=== PATIENT | female | born 2000 | race Caucasian/White ===

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

== ENCOUNTER 2022-05-11 14:00 | Outpatient (REF) | payer OTHER, SELFPAY ==
[2022-05-13 11:16] LABS: COVID-19 RT-PCR UVMMC Result Negative (Negative)
== END 2022-05-11 14:01 | disposition home or self-care (01) ==
LOC: LBN 14:00
PROVIDERS: PCP Family Medicine; Visit Provider Physician Assistant Medical
DX: Z20.822 Contact with and (suspected) exposure to COVID-19 (principal); J34.89 Other specified disorders of nose and nasal sinuses
CPT/HCPCS: U0003

== ENCOUNTER 2022-05-31 04:01 | Outpatient (CLI) | payer BC, SELFPAY ==
[2022-05-31 15:55] LABS: Panorama Kit Sent via Fed Ex
[2022-05-31 16:01] LABS: Abs Immature Grans 0.02 10^3/uL (0.0-0.06); Absolute Basophil Count 0.01 10^3/uL (0.0-0.2); Absolute Eosinophil Count 0.04 10^3/uL (0.0-0.7); Absolute Lymphocyte Count 2.22 10^3/uL (1.2-3.4); Absolute Monocyte Count 0.38 10^3/uL (0.1-0.8); Absolute Neutrophil Count 3.87 10^3/uL (1.2-6.7); Basophils % 0.2; Eosinophils % 0.6; HCT 39.1 % (36.0-46.0); HGB 13.6 g/dL (11.2-15.7); Immature Grans % 0.3; Lymphocytes % 33.9; MCH 28.8 pg (27.0-33.0); MCHC 34.8 % (32.0-36.0); MCV 83 fL (80-95); MPV 8.6 fL (8.0-11.0); Monocytes % 5.8; Neutrophils % 59.2; Platelet Count 254 10^3/uL (130-400); RBC 4.73 10^6/uL (3.93-5.22); RDW 12.7 % (11.7-14.6); RDW-SD 38.5 fL; WBC 6.54 10^3/uL (4.4-10.8)
[2022-05-31 16:37] LABS: Glucose,1 Hr (Glucola) 121 mg/dL (80-140)
[2022-05-31 18:25] LABS: ALT 20 U/L (14-59); AST 19 U/L (15-37); Albumin 3.1 g/dL (3.4-5.0); Alkaline Phosphatase 83 U/L (46-116); Anion Gap 9.6 mmol/L (3-11); BUN 10 mg/dL (7-18); Bilirubin, Total 0.3 mg/dL (0.2-1.0); CO2 25.4 mmol/L (21.0-32.0); CREATININE 0.6 mg/dL (0.55-1.02); Calcium 8.7 mg/dL (8.5-10.1); Chloride 102 mmol/L (98-107); Estimated GFR 130.07 (mL/min/1.73m2); Glucose 115 mg/dL (74-106); Potassium 3.3 mmol/L (3.5-5.1); Sodium 137 mmol/L (136-145); TSH (W/Ref FT4) 1.37 uIU/mL (0.36-3.74); Total Protein 7.3 g/dL (6.4-8.2)
[2022-06-02 09:41] LABS: HIV-1/2 Ag & Ab Screen Negative (Negative)
[2022-06-04 09:51] LABS: Hepatitis C Ab w Rflx HCV PCR Negative (Negative)
[2022-06-04 09:57] LABS: Hepatitis B Surface Ag Negative (Negative)
[2022-06-04 10:36] LABS: Rubella IgG Ab (UVM) Positive (See Note); Varicella IgG Antibody Positive (See Note)
[2022-06-04 23:52] LABS: Syphilis IgG w/Reflex Nonreactive (Nonreactive)
[2022-06-08 14:03] LABS: Specimen WB Whole Blood
[2022-06-25 15:34] LABS: Result Summary NEGATIVE; Specimen WB Whole Blood
== END 2022-05-31 04:02 | disposition home or self-care (01) ==
LOC: LBO 04:02
PROVIDERS: PCP Family Medicine; Visit Provider Advanced Practice Midwife
DX: Z34.91 Encounter for supervision of normal pregnancy, unspecified, first trimester (principal); Z3A.13 13 weeks gestation of pregnancy; Z36.89 Encounter for other specified antenatal screening
CPT/HCPCS: 36415; 80053; 81220; 81222; 81329; 82950; 86787; 86803; 86850; 86900; 86901; 87340; 87389; 84443; 85025; 86762; 86780

== ENCOUNTER 2022-05-31 15:51 | Outpatient (REF) | payer BC, SELFPAY ==
--- NOTE | 2022-05-31 15:00 | PAPFT_PTH ---
PATIENT: Mary Bess LOC: N U#:[id number] AGE/SX: 21/F ROOM: RE05/31/[address]: Bozena Oliveros : 2000 BED: DIS: 05/31/2022 SPEC #: [id number] RECD: 05/31/22 18:26 STATUS: GENEVA REQ #: [id number] MELVINA: 05/31/22 15:[address]: Bozena Oliveros DEPT: [facility] Cytology RECD BY: Yasmeen Warren ENTERED: 05/31/22 18:27 SP TYPE: PAPFT OTHR DR: Daniel Garcia Tissues: 1 - CX/ENDOCX FOR PAP SMEARS Procedures: PAP THIN PREP/[facility] Screening Comments: [id number]
[2022-05-31 18:15] LABS: *AMPHETAMINES SCREEN URINE Negative (Negative); *BARBITURATES SCREEN URINE Negative (Negative); *BENZODIAZEPINES SCREEN URINE Negative (Negative); Cannabinoids THC Negative (Negative); Cocaine Screen,Urine Negative (Negative); METHADONE URINE SCREEN Negative (Negative); OPIATES URINE SCREEN Negative (Negative); Tricyclic Antidepressants Negative (Negative)
[2022-06-02 15:05] LABS: Chlamydia Result Negative (Negative); GC Result Negative (Negative)
[2022-06-06 14:11] LABS: Buprenorphine Negative ng/mL (Cutoff: 5.0); Norbuprenorphine Negative ng/mL (Cutoff: 2.5)
== END 2022-05-31 15:52 | disposition home or self-care (01) ==
LOC: LBN 15:51
PROVIDERS: PCP Family Medicine; Visit Provider Advanced Practice Midwife
DX: Z34.91 Encounter for supervision of normal pregnancy, unspecified, first trimester (principal); Z11.3 Encounter for screening for infections with a predominantly sexual mode of transmission; Z12.4 Encounter for screening for malignant neoplasm of cervix; Z3A.13 13 weeks gestation of pregnancy
CPT/HCPCS: 80307; 80348; 87491; 87591; 88142; 87086; 87480; 87510; 87660

== ENCOUNTER 2022-06-28 17:06 | Outpatient (REF) | payer BC, SELFPAY | END 2022-06-28 17:07 | disposition home or self-care (01) | LOC: LBN 17:06 | PROVIDERS: PCP Family Medicine; Visit Provider Advanced Practice Midwife | DX: N76.2 Acute vulvitis (principal) | CPT/HCPCS: 87480; 87510; 87660 ==

== ENCOUNTER 2022-09-12 02:51 | Outpatient (CLI) | payer BC, SELFPAY ==
[2022-09-12 14:39] LABS: HCT 36.1 % (36.0-46.0); HGB 12.5 g/dL (11.2-15.7); MCH 28.9 pg (27.0-33.0); MCHC 34.6 % (32.0-36.0); MCV 84 fL (80-95); MPV 8.1 fL (8.0-11.0); Platelet Count 221 10^3/uL (130-400); RBC 4.32 10^6/uL (3.93-5.22); RDW 13.7 % (11.7-14.6); RDW-SD 41.9 fL; WBC 10.28 10^3/uL (4.4-10.8)
[2022-09-12 14:47] LABS: Glucose,1 Hr (Glucola) 143 mg/dL (80-140)
== END 2022-09-12 02:52 | disposition home or self-care (01) ==
LOC: LBO 02:51
PROVIDERS: Advanced Practice Midwife; PCP Family Medicine; Visit Provider Advanced Practice Midwife
DX: O26.893 Other specified pregnancy related conditions, third trimester (principal); Z3A.28 28 weeks gestation of pregnancy
CPT/HCPCS: 36415; 82950; 85027; 86850; 90384

== ENCOUNTER 2022-09-21 01:28 | Outpatient (CLI) | payer BC, SELFPAY ==
[2022-09-21 11:26] LABS: Glucose 1 Hour 147 mg/dL
[2022-09-21 13:47] LABS: Glucose 3 Hour 130 mg/dL
== END 2022-09-21 01:29 | disposition home or self-care (01) ==
PROVIDERS: PCP Family Medicine; Visit Provider Advanced Practice Midwife
DX: Z34.93 Encounter for supervision of normal pregnancy, unspecified, third trimester (principal); Z3A.29 29 weeks gestation of pregnancy
CPT/HCPCS: 36415; 82951

== ENCOUNTER 2022-11-07 16:31 | Outpatient (REF) | payer BC, SELFPAY ==
[2022-11-07 17:31] LABS: *AMPHETAMINES SCREEN URINE Negative (Negative); *BARBITURATES SCREEN URINE Negative (Negative); *BENZODIAZEPINES SCREEN URINE Negative (Negative); Cannabinoids THC Negative (Negative); Cocaine Screen,Urine Negative (Negative); METHADONE URINE SCREEN Negative (Negative); OPIATES URINE SCREEN Negative (Negative)
[2022-11-07 17:38] LABS: Tricyclic Antidepressants Negative (Negative)
[2022-11-15 19:31] LABS: Buprenorphine Negative ng/mL (Cutoff: 5.0); Norbuprenorphine Negative ng/mL (Cutoff: 2.5)
== END 2022-11-07 16:32 | disposition home or self-care (01) ==
LOC: LBN 16:31
PROVIDERS: PCP Family Medicine; Visit Provider Advanced Practice Midwife
DX: Z34.00 Encounter for supervision of normal first pregnancy, unspecified trimester (principal)
CPT/HCPCS: 80307; 80348; 87081

== ENCOUNTER 2022-12-04 10:14 | Outpatient (CLI) | payer BC, SELFPAY ==
[2022-12-04 11:11] VITALS: BP 117/76; PULSE 94; TEMP 36.9
--- NOTE | 2022-12-04 12:43 | W.OBNST ---
Date of service: 12/04/22 Time of Service: 12:43 NST Evaluation Reason for NST Reasons for Nonstress Test: DECREASED MOVEMENT Gestational Age Gestational Age in Weeks and Days: 40 Weeks and 1Days Test and Monitor Explained Test/Monitor Explained: Test Explained, Monitor Explained and Patient Verbalized Understanding Vital Signs Blood Pressure: 117/76 Pulse: 94 Temperature: 98.4 F NST Information Date on Monitor: 12/04/22 Time on Monitor: 11:15 Date off Monitor: 12/04/22 Time off Monitor: 11:43 Total Time on Monitor: 28 NST Interventions: PO Hydration NST Evaluation Patient States Movement: Present FHR Baseline: 145 Variability: Moderate 6-25 bpm Accelerations: 15x15 Decelerations: None NST Results: Reactive Note Ultrasound Done: N/A. NST Note Note: Mary reports decreased movement this morning. Fetus active with reactive NST. Cervix 0.5 cm/ 30%/-2. Retrun to center in 6 days for post dates testing NST Reviewed and Verified by: Bozena Oliveros
[2022-12-04 12:44] VITALS: BP 117/76; PULSE 94; TEMP 36.9
== END 2022-12-04 11:51 | disposition home or self-care (01) ==
LOC: BCD 10:16 → OBS 10:18
PROVIDERS: PCP Family Medicine; Visit Provider Advanced Practice Midwife
DX: O36.8131 Decreased fetal movements, third trimester, fetus 1 (principal); Z3A.40 40 weeks gestation of pregnancy
CPT/HCPCS: 59025

== ENCOUNTER 2022-12-10 11:27 | Outpatient (CLI) | payer BC, SELFPAY ==
[2022-12-10 13:17] VITALS: BP 119/80; PULSE 78; TEMP 36.6
--- NOTE | 2022-12-10 15:25 | W.OBNST ---
Date of service: 12/10/22 Time of Service: 15:25 NST Evaluation Reason for NST Reasons for Nonstress Test: OTHER, SEE COMMENT Reason for NST Other: post dates Gestational Age Gestational Age in Weeks and Days: 41 Weeks and 0Days Test and Monitor Explained Test/Monitor Explained: Test Explained, Monitor Explained and Patient Verbalized Understanding Vital Signs Blood Pressure: 119/80 Pulse: 78 Temperature: 97.9 F NST Information Date on Monitor: 12/10/22 Time on Monitor: 13:02 Date off Monitor: 12/10/22 Time off Monitor: 14:55 Total Time on Monitor: 113 NST Interventions: PO Hydration and Meal Given Contraction Frequency: 0 NST Evaluation Patient States Movement: Present FHR Baseline: 140 Variability: Moderate 6-25 bpm Accelerations: 15x15 Decelerations: None NST Results: Reactive Note Ultrasound Done: ARY (postdates) Total ARY: 9.8 Other Pertinent Findings: Heart Rate (136), Presentation (ROP) and Placental Location (left anterior) Coding for ARY w/NST: Completed Exam. NST Note Note: Cvx 2/thick posterior, soft, vtx -3 ROP Will schedule IOL for 12/13/22 NST Reviewed and Verified by: Frances Henson
[2022-12-10 15:27] VITALS: BP 119/80; PULSE 78; TEMP 36.6
== END 2022-12-10 15:10 | disposition home or self-care (01) ==
LOC: BCD 11:31 → OBS 12:17
PROVIDERS: PCP Family Medicine; Visit Provider Advanced Practice Midwife
DX: O48.0 Post-term pregnancy (principal); Z3A.41 41 weeks gestation of pregnancy
CPT/HCPCS: 59025

== ENCOUNTER 2022-12-12 10:51 | Inpatient (IN) | payer BC, SELFPAY ==
[2022-12-12] VITALS (125 sets, daily range): BP systolic 115–144; BP diastolic 71–80; PULSE 0–108; RESP 16–18; TEMP 36.2–36.9; O2SAT 99
--- NOTE | 2022-12-12 11:35 | HPE_ITS ---
Date of service: 12/12/22 Time of Service: 11:35 Assessment and Plan Assessment and plan (1) Encounter for induction of labor: Status: Acute Assessment and plan: Admit to Center. Reviewed cervical ripening methods. Mary chooses to proceed with cervidil for cervical ripening. Consider AROM when appropriate. Comfort measures. Anticipate . OB-HPI Labor/Delivery History of Present Illness Reason for Visit: Rule Out Labor Chief Complaint: Scheduled Induction of Labor Indication for Induction: Post Date. HUNG Calculator Estimated Delivery Date Method Current WG Current Estimate 12/03/22 Ultrasound #1 41w 2d Other Estimates 12/01/22 LMP (Uncertain) 41w 4d Comments: Mary is here for induction of labor at 41 weeks and 2 days. History of Present Expected Delivery Route/Plan - CNM FOB/ - Thony Bess (2nd baby together, 6 yo from previous relationship) BG - Brayle Desires tub room, may deliver in shower or in tub, hx fast labor GBS negative Specific Issues/Plan 1, History of depression, no meds currently 1a. Panic attacks - started sertraline 25 mg 1b. Still experiencing anxiety - sertraline dose increased to 50 mg PO. Then pt d/c'ed sertraline 2. History of migraine Frequent headaches at 28 wks- magnesium daily 3. BMI 40 - early YPY=[id number] 3a. 28 week GTT-143, 3-hr GTT F98/1h 147/2h 113/3h 130 4. 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 Rh neg, RhoGam @ 28 wks-received 09/12 6. Panorama negative, SMA negative, CF negative, AFP declined. 7. Hx difficulty, left inverted nipple, LC consult ordered 11/28 PFS All Active Problems (Updated 12/12/22 @ 11:37 by Bozena Oliveros CNM) Encounter for induction of labor (Acute) Inverted nipple (Acute) Rh negative state in antepartum period (Acute) Vulvitis (Acute) Congenital hypoplasia of left kidney (Acute) (Acute) BMI 40.0-44.9, adult (Acute) Migraine (Chronic) Medical History (Updated 12/12/22 @ 11:37 by Bozena Oliveros CNM) Depression Surgical History (Updated 04/10/22 @ 15:52 by Bess Wellington NP) S/P cholecystectomy August 2021, Shivani S/P foot surgery, left 2009 Family History (Updated 05/31/22 @ 17:08 by Bozena Oliveros CNM) Mother Neoplasm Breast cancer diagnosed age 32 Depression Father Hypertension Maternal Grandfather Diabetes Paternal Grandmother Heart disease suddenly in 70s. Hypoplastic kidney Maternal Grandmother Hypothyroid Social History Smoking/Tobacco Use Status: Never Smoking risk assessment performed?: Yes Alcohol Intake: never Drug use: Never Substance use type: does not use Female Reproductive History Menstrual control method: none History History 4 Para 2 Hx # Term Pregnancies 2 Multiple births 0 Hx # Pregnancies 0 Ectopic pregnancies 0 AB induced 1 Hx Number of Living Children 2 AB spontaneous 0 Past Pregnancies Del. Date GA/Weeks # Preg Succ Route Wgt Sex Labor Lgth Anesth esia Location Prov Complic 11/19/18 39 No vaginal 7 lb 4 oz Female 6 hours [place] 12/20/20 39 No Yes vaginal 8 lb Female 2 hours Shivani Delivery Date: 11/19/18 Last Updated by: Bozena Oliveros CNM Py[place], pos. GBS, used a nipple shield Delivery Date: 12/20/20 Last Updated by: Bozena Oliveros CNM [place], difficulty due to sore nipples Meds Allergies and Home Medications Allergies Allergy/AdvReac Type Severity Reaction Status Date / Time latex Allergy Intermediate red itchy Verified 12/05/22 15:35 rash adhesive tape AdvReac Intermediate Skin Rash Verified 12/05/22 15:35 Home Medications Medication Instructions Recorded Confirmed Type [id number] 400 mcg-om3 35 mg-dha 25 1 tab PO BID 04/04/18 12/12/22 History mg-epa 5 mg-fish oil chewable tablet ( Gummy) magnesium 200 mg tablet 400 mg PO DAILY #1 tab 04/04/18 12/12/22 Rx acetaminophen 500 mg tablet 500 mg PO Q6H PRN 05/22/18 12/12/22 History (Tylenol Extra Strength) hydrocortisone-pramoxine 2.5 %-1 % 1 applic topical BID PRN 06/29/22 12/12/22 Rx topical cream hemorrhoids #57 grams ondansetron HCl 4 mg tablet 4 mg PO Q6H PRN nausea and 09/26/22 12/12/22 Rx vomiting #14 tabs Exam Detailed Labor and Delivery Exam Effacement (%): 50 station: -1 Cervix position: posterior Consistency: soft Michaud Score: Cervical Points Exam 0 1 2 3 Dilation Closed 1-2cm 3-4 cm 5-6cm Effacement 0-30% 40-50% 60-70% 80% Consistency Firm Medium Soft Station -3 -2 -1,0 +1,+2 Position Posterior Mid Anterior Amniotic Membrane Status: Intact Monitor Mode: External Contraction Frequency(min): occasional Contraction Duration(sec): 40-50 Contraction Intensity: Mild Comments: Unable to reach cervical os as it is posterior. Cervix was 2 cms and 30% effaced previously Fetus A Heart Rate Baseline: 140 Monitor Accelerations: 15 X 15 Monitor Decelerations: None Variability: Moderate (6-25 BPM) Presentation: Vertex Categories: Category I Respiratory Exam Respiratory Exam: Normal Cardiovascular Exam Cardiovascular Exam: Normal Abdominal Exam Abdominal Exam: Normal Extremities Exam Extremities Exam: Normal Skin Exam Skin Exam: Normal Psychiatric Exam Psychiatric Exam: Normal Risk Assessment Risk for Shoulder Dystocia Historical/Initial OB: POSITIVE FOR: Pre- BMI>30 36 Weeks: NEGATIVE FOR: Current Gestational DM, EFW>4500gms or Maternal Weight Gain>40lbs 40 Weeks: NEGATIVE FOR: EFW> 4500 gms, Maternal Weight Gain >40lb or Post Dates Date/Initial: 12/05/22 KH Delivery Plan @ 36wks: spont labor, Delivery Plan @ 40 wks: , has 41 week ARY/NST scheduled Risk for Pre-Eclampsia Date Initiated/Initials: Start 05/31/22, 13 wks, KM Yes, if one or more: POSTIVE FOR: Renal Disease (hypoplastic left kidney) Yes, if 2 or more: POSITIVE FOR: BMI>30 Risk for Post- Hemorrhage Initial: NEGATIVE FOR: Multiple Gestation, Previous PPH, Known Clotting Deficiency, Grand Multiparity or Anticoagulation 36 Weeks: NEGATIVE FOR: Anemia, hgb<10, Low platelets(thrombocytopenia), Gestational HTN or Pre-E, Polyhydraminios or EFW>4500gms 40 Weeks: NEGATIVE FOR: Anemia, hgb<10, Low platelets (thrombocytopenia), Gestation HTN or Pre-E, Polyhydraminios or EFW>4500gms Counseled re: Active Management: Yes Risks Reviewed Risks Reviewed Upon Admission: Yes
[2022-12-12] MEDS: Dinoprostone-CERVICAL 10 MG VSUPP VG (12:36)
[2022-12-12 13:05] LABS: HCT 37.4 % (36.0-46.0); HGB 12.9 g/dL (11.2-15.7); MCH 28.5 pg (27.0-33.0); MCHC 34.5 % (32.0-36.0); MCV 83 fL (80-95); Platelet Count 227 10^3/uL (130-400); RBC 4.52 10^6/uL (3.93-5.22); RDW 14.8 % (11.7-14.6); RDW-SD 44.3 fL; WBC 11.21 10^3/uL (4.4-10.8)
--- NOTE | 2022-12-12 15:35 | W.OBNST ---
Date of service: 12/12/22 Time of Service: 15:35 NST Evaluation Reason for NST Reasons for Nonstress Test: POSTDATES Gestational Age Gestational Age in Weeks and Days: 41 Weeks and 2Days Test and Monitor Explained Test/Monitor Explained: Test Explained, Monitor Explained and Patient Verbalized Understanding Vital Signs Blood Pressure: 134/80 Pulse: 86 Temperature: 97.9 F Urine Results Urine Protein: Negative Urine Ketones: Negative Urine Glucose: Negative Urine Blood: Negative NST Information Date on Monitor: 12/12/22 Time on Monitor: 11:34 Date off Monitor: 12/12/22 Time off Monitor: 12:30 Total Time on Monitor: 56 NST Interventions: Notify Provider Contraction Frequency: Q10 NST Evaluation Patient States Movement: Present FHR Baseline: 135 Variability: Moderate 6-25 bpm Accelerations: 15x15 Decelerations: None NST Results: Reactive Note Ultrasound Done: N/A. NST Note Note: Mary presents with irregular contractions. Admitted for IOL at 41 +2 weeks NST Reviewed and Verified by: Bozena Oliveros
--- NOTE | 2022-12-12 21:15 | W.PM.OBNL1 ---
Date of service: 12/12/22 Time of Service: 21:15 Pelvic Exam Dilation: 2 Effacement (%): 50 station: -1 Cervix Position: posterior Consistency: soft Contractions Monitor Mode: External Contraction Frequency(min): every 2-4 Contraction Duration(sec): 50 Intensity: Moderate Fetus A Monitor: External (US) Heart Rate Baseline: 140 Presentation: Vertex Variability: Moderate (6-25 BPM) Categories: Category I Accelerations: 15 X 15 Decelerations: None Amniotic Membrane Status: Intact Assessment Note: AROM attempted but cervix is very posterior and no amniotic fluid seen after attempt Assessment and Plan Assessment and plan (1) Encounter for induction of labor: Status: Acute Assessment and plan: Will remove cervidil at 0036 and will attempt AROM again. Anticpate . Objective Abnormal lab results 12/12/22 Range/Units 12:44 WBC 11.21 H (4.4-10.8) 10^3/uL RDW 14.8 H (11.7-14.6) % Temp Pulse Resp BP Pulse Ox 98.4 F 89 18 115/73 99 12/12/22 20:23 12/12/22 21:14 12/12/22 20:23 12/12/22 20:23 12/12/22 18:16 Laboratory Results WBC 11.21 10^3/uL (4.4-10.8) H 12/12/22 12:44 RBC 4.52 10^6/uL (3.93-5.22) 12/12/22 12:44 Hgb 12.9 g/dL (11.2-15.7) 12/12/22 12:44 Hct 37.4 % (36.0-46.0) 12/12/22 12:44 MCV 83 fL (80-95) 12/12/22 12:44 MCH 28.5 pg (27.0-33.0) 12/12/22 12:44 MCHC 34.5 % (32.0-36.0) 12/12/22 12:44 RDW 14.8 % (11.7-14.6) H 12/12/22 12:44 Plt Count 227 10^3/uL (130-400) 12/12/22 12:44 MPV 9.0 fL (8.0-11.0) 12/12/22 12:44 Patient ABO/Rh O Negative 12/12/22 12:44 Antibody Screen NEGATIVE 12/12/22 12:44 Subjective Interval history since last seen: Mary has been resting and she took a shower. Contractions are becoming more frequent. cervidil remains in place Results Hemoglobin/Hematocrit: Hgb 12.9 g/dL (11.2-15.7) 12/12/22 12:44 Hct 37.4 % (36.0-46.0) 12/12/22 12:44 Abnormal Lab Findings: Abnormal Labs 12/12/22 12:44 WBC 11.21 H RDW 14.8 H
[2022-12-12] MEDS: Nalbuphine 10 MG/ML AMP 5 MG SC (23:33)
[2022-12-13] VITALS (13 sets, daily range): BP systolic 99–134; BP diastolic 55–76; PULSE 68–94; RESP 16–18; TEMP 36.3–37.2; O2SAT 98
[2022-12-13] MEDS: Oxytocin 10 UNITS/ML VIAL IM (00:25)
--- NOTE | 2022-12-13 00:38 | OBVDS_ITS ---
Date of service: 12/13/22 Time of Service: 00:38 OB Labor/ Delivery Information Baby A Delivery Delivery Method: Spontaneaous Presentation: Cephalic Amniotic Fluid: Clear Estimated Blood Loss: 200 Delivery Outcome: Liveborn Infant Complications: none Infant Transferred: Remains with Mother Note: Mary had spontaneous rupture of membranes for a moderate amount of clear fluid. Her contractions became very strong and she requested to use nitrous oxide and the tub for comfort which had good effect. The ccervidil was removed at 2300 and I was unable to reach the posterior cervix at that time and she did not tolerate the exam due to her discomfort. She requested additional pain medication and nubain 5 mg SC was given with good effect. FHTs 140s during first stage of labor. FHTs 140 by doppler in second stage. Progressed rapidly to full dilation and began pushing and delivered with one push.Spontaneous delivery of female delivered in EMBER position in the tub. Baby was brought immediately to the surface and was placed on mother's abdomen and stimulated. She had a spontaneous cry. Cord was clamped and cut by the baby's father. Mary moved to bed and the placenta delivered spontaneously and appears to by intact with a three vessel cord. Pitocin 10 units IM was admin istered before delivery of the placenta. The perineum was inspected and a small laceration above the urethral opening was repaired under local anesthetic. The baby did breastfeed. After delivery, Mother and baby and father of the baby were stable and bonding well in the delivery room and there were no complications. Providers Nurse Quality Assurance Monitor Body: Bozena Oliveros Nurse: Kari Beltran Nurse: Chelsea Davis Labor/Delivery Information Number of Babies in Womb: 1 Steroids Given: None Reason Steroids Not Administered: N/A Group Beta Strep: Negative Rubella Status: Immune Blood Type: O- Varicella Immunity: Immune Maternal Complications: None Shoulder Dystocia: No Stages of Labor Onset of Labor Date: 12/13/22 ROM Baby A: 12/12/22 ROM Baby A: 22:37 ROM Total Time- Baby A: [id number] Infant Delivery Date-Baby A: 12/13/22 Delivery Time-Baby A: 00:01 Placenta Delivery Date-Baby A: 12/13/22 Placenta Delivery Time-Baby A: 00:14 Labor-Stage 3 Duration: 13 minutes Placenta Status: Delivered Baby A Gender: Female Gestational Status: Term (39-41.6 wks) Gestational Age in Weeks/Days: 41 Weeks and 3 Days Score-1 Minute Interval(Baby A) Heart Rate-1 minute: 100 BPM or Greater Respiratory Effort- 1 minute: Spontaneous/Strong Cry Muscle Tone-1 minute: Active Movement Reflex Response-1 minute: Prompt Response Color-1 minute: Bluish Hands or Feet Total Score-1 minute: 9 Score-5 Minute Interval(Baby A) Heart Rate- 5 minute: 100 BPM or Greater Respiratory Effort-5 minute: Spontaneous/Strong Cry Muscle Tone-5 minute: Active Movement Reflex Response-5 minute: Prompt Response Color-5 minute: Bluish Hands or Feet Total Score- 5 minute: 9 Interventions Repair of Laceration Type: Periurethral, Laceration Extension: N/A. Sponge Count Correct: No Sponges Placed in Vagina, Sharp Count Correct: Yes. Laceration Repair Note: small laceration which was bleeding and was reapproximated with 3 interrupted 3-0 vicryl sutures.
[2022-12-13] MEDS: Ibuprofen 600 MG TAB PO ×3 (00:56→16:43)
[2022-12-13] MEDS: Acetaminophen 325 MG TAB 650 MG PO ×4 (00:57→16:42)
[2022-12-13] MEDS: Docusate Sodium 100 MG CAP PO (16:43)
[2022-12-14] MEDS: Docusate Sodium 100 MG CAP PO (07:32)
[2022-12-14] MEDS: Acetaminophen 325 MG TAB 650 MG PO (07:32)
[2022-12-14] MEDS: Ibuprofen 600 MG TAB PO (07:32)
[2022-12-14 07:40] VITALS: BP 123/76; PULSE 92; RESP 16; TEMP 36.9; O2SAT 98
--- NOTE | 2022-12-14 08:11 | DSE_ITS ---
Date of service: 12/14/22 Time of Service: 08:10 DS: Diagnosis Discharge Diagnosis (1) Encounter for induction of labor: Status: Acute Asessment and Plan: 1. Normal labor was established with induction. Normal PP course and breast feeding is well established. 2. Discharged to home in satisfactory condition and will return to office in 2 and 6 week PP 3. Planning Vasectomy which is scheduled. Discharge Plan Disposition Patient Disposition: Home Condition: Good Discharge Details Reason For Visit: IOL Admit Date/Time: 12/12/22 10:51 Admit Provider: Bozena Oliveros Attending Provider: Bozena Oliveros Primary Care Provider: Daniel Garcia [place] Hospital Course Hospital Course: NVD following induction of labor for post dates. Normal PP course. Breast feeding well established. Home Meds and New Rx's Prescriptions: Continued Gummy 400 mcg-35 mg -25 mg-5 mg tablet,chewable 1 tab PO BID magnesium 200 mg tablet 400 mg PO DAILY Qty: 1 0RF ondansetron HCl 4 mg tablet 4 mg PO Q6H PRN (Reason: nausea and vomiting) Qty: 14 3RF acetaminophen [Tylenol Extra Strength] 500 mg tablet 500 mg PO Q6H PRN hydrocortisone-pramoxine 2.5-1 % cream 1 applic topical BID PRN (Reason: hemorrhoids) Qty: 57 0RF Rx Instructions: allow at least 3 hours between applications Discharge Instructions Stand Alone Forms: BC Instructions, BC Post Vaginal Deliver Activity:: Activity as Tolerated Equipment/Supplies:: No Equipment Needed Diet:: As Tolerated Discharge Orders Discharge Orders: Discharge Order (Routine); Ordered 12/14/22 Ordered By: Bozena Otto OB:DS Summary Summary Vaginal Delivery Method: Spontaneaous Laceration Description: Periurethral Laceration Extension: N/A Contraception Discussed Contraception Discussed: Yes Contraceptive Plan: Foam/Condoms and Vasectomy, [place] Gender-Baby A: Female weight: 7 lb 2.464 oz Status at Discharge Functional status at discharge: independent ambulation Overall status at discharge: patient is back to baseline Mental Status: mental status grossly normal Speech and Movement: speech and movement normal Mood: congruent mood Affect: normal affect Time Spent with Patient providing and/or coordinating discharge services: Less than 30 minutes Exam Physical Exam Vital signs: Temp Pulse Resp BP Pulse Ox 98.7 F 92 H 18 104/64 98 12/13/22 20:00 12/13/22 20:00 12/13/22 20:00 12/13/22 20:00 12/13/22 15:15 Vital Signs Reviewed: Yes Constitutional Constitutional: no acute distress, average body habitus and cooperative HEENT Exam HEENT Exam: Normal Neck Exam Neck Exam: Normal (normal visual inspection) Respiratory Exam Respiratory Exam: Normal Cardiovascular Exam Cardiovascular Exam: Normal Abdominal Exam Abdomen: Other (normal exam) Fundal Exam Fundus: Below Umbilicus and Firm Comment: small lochia noted. KH Rectal Exam Rectal Exam: Not Done Exam Perineum: Intact and Normal Extremities Exam Extremity Exam: Normal (denies calf tenderness) and Full ROM Back/Spine/Pelvis Exam Back Exam: Normal Skin Exam Skin Exam: Normal Neurological Exam Neurological Exam: Normal Psychiatric Exam Psychiatric Exam: Normal PFSH All Active Problems Encounter for induction of labor (Acute) Inverted nipple (Acute) Rh negative state in antepartum period (Acute) Vulvitis (Acute) Congenital hypoplasia of left kidney (Acute) (Acute) BMI 40.0-44.9, adult (Acute) Migraine (Chronic) Medical History Depression Surgical History S/P cholecystectomy August 2021, Shivani S/P foot surgery, left 2009 Family History Mother Neoplasm Breast cancer diagnosed age 32 Depression Father Hypertension Maternal Grandfather Diabetes Paternal Grandmother Heart disease suddenly in 70s. Hypoplastic kidney Maternal Grandmother Hypothyroid Social History Smoking/Tobacco Use Status: Never Smoking risk assessment performed?: Yes Alcohol Intake: never Drug use: Never Substance use type: does not use Housing: house Do you feel safe at home: Yes Do you feel safe in your relationship?: Yes Female Reproductive History Menstrual control method: none History History 4 Para 2 Hx # Term Pregnancies 2 Multiple births 0 Hx # Pregnancies 0 Ectopic pregnancies 0 AB induced 1 Hx Number of Living Children 2 AB spontaneous 0 Past Pregnancies Del. Date GA/Weeks # Preg Succ Route Wgt Sex Labor Lgth Anesth esia Location Prov Complic 11/19/18 39 No vaginal 7 lb 4 oz Female 6 hours [place] 12/20/20 39 No Yes vaginal 8 lb Female 2 hours Shivani Delivery Date: 11/19/18 Last Updated by: Bozena Oliveros CNM [place], pos. GBS, used a nipple shield Delivery Date: 12/20/20 Last Updated by: Bozena Oliveros CNM [place], difficulty due to sore nipples DS: Data Vitals/I&O Vitals and I&O: Vital Signs Temperature 98.7 F 12/13/22 20:00 Temperature 97.9 F 12/12/22 15:36 Temperature Source Oral 12/13/22 20:00 Pulse 92 H 12/13/22 20:00 Pulse 86 12/12/22 15:36 Pulse Rhythm Regular 12/13/22 20:19 Respiratory Rate 18 12/13/22 20:00 Blood Pressure 104/64 12/13/22 20:00 Blood Pressure 134/80 12/12/22 15:36 Blood Pressure Mean 77 12/13/22 20:00 Pulse Oximetry 98 12/13/22 15:15 Oxygen Delivery Method Room Air 12/12/22 12:00 Oxygen Flow Rate 0 12/12/22 12:00 Pain Level 8 12/14/22 07:32 Comment using nitrous thru contractions 12/12/22 22:22 Intake & Output 12/13/22 12/13/22 12/14/22 11:59 23:59 11:59 Output Total 450 / 700 250 / 700 Balance -450 / -700 -250 / -700 Output: Urine 450 / 700 250 / 700 Other: Urine Color Pale Urine Appearance Clear Urine Odor None Voiding Methods Toilet
--- NOTE | 2022-12-14 09:40 | W.ANESPOSTOP ---
Postoperative Evaluation Date, Time and Location Date Performed: 12/14/22 Time Performed: 09:42 Patient Location: Obstetrics Vital Signs Most Recent Imported Vital Signs: Most Recent Vital Signs Temp Pulse Resp BP Pulse Ox 36.9 C 92 H 16 123/76 98 12/14/22 07:40 12/14/22 07:40 12/14/22 07:40 12/14/22 07:40 12/14/22 07:40 Pain Score Most Recent Pain Score: Most Recent Pain Score Pain Level [Abdomen] 8 12/14/22 07:40 Pain Level 8 12/14/22 07:32 Assessment Mental Status: Awake (Alert & Oriented to Patient Baseline) Airway and Respiratory Function: Patent airway with normal (patient baseline) respiratory exam Cardiovascular Function: Hemodynamically Stable Hydration Status: Adequately Hydrated Nausea & Vomiting: No Nausea or Vomiting Pain: Pt. Denies Any Pain Peripheral Nerve Block: Other (Epidural for active labor, epidural removed. Pt tolerated well.) Epidural/Spinal Cath. Removal Date Performed: 12/14/22 Procedure Time: 09:40 Catheter Removal Type: Epidural Catheter Procedure Location: Obstetrics Patient Position: Sitting Catheter Removal Procedure: Dressing Removed, Catheter Removed without Resistance, Catheter Tip Intact and Dressing Applied (bandaid) Paresthesia: None Procedure Tolerated: No Complications Procedure Outcome: Successful Performed By: Tonny Nixon
== END 2022-12-14 10:10 | disposition home or self-care (01) | DRG 806 ==
PROVIDERS: Admitting Provider Advanced Practice Midwife; PCP Family Medicine; Visit Provider Advanced Practice Midwife
DX: O48.0 Post-term pregnancy (principal); O36.0930 Maternal care for other rhesus isoimmunization, third trimester, not applicable or unspecified; Z37.0 Single live birth; O99.354 Diseases of the nervous system complicating childbirth; Z3A.41 41 weeks gestation of pregnancy; O99.344 Other mental disorders complicating childbirth; F41.0 Panic disorder [episodic paroxysmal anxiety]; O71.82 Other specified trauma to perineum and vulva; G43.909 Migraine, unspecified, not intractable, without status migrainosus
CPT/HCPCS: 85027; 86850; 86900; 86901; J2590; J3490

== ENCOUNTER 2023-01-24 18:35 | Outpatient (REF) | payer BC, SELFPAY | END 2023-01-24 18:36 | disposition home or self-care (01) | LOC: LBN 18:35 | PROVIDERS: PCP Family Medicine; Visit Provider Advanced Practice Midwife | DX: N76.1 Subacute and chronic vaginitis (principal) | CPT/HCPCS: 87480; 87510; 87660 ==

== ENCOUNTER 2024-01-07 01:56 | Outpatient (CLI) | payer BC, SELFPAY ==
[2024-01-07 09:49] LABS: Abs Immature Grans 0.02 10^3/uL (0.0-0.06); Absolute Basophil Count 0.03 10^3/uL (0.0-0.2); Absolute Eosinophil Count 0.19 10^3/uL (0.0-0.7); Absolute Monocyte Count 0.39 10^3/uL (0.1-0.8); Absolute Neutrophil Count 5.14 10^3/uL (1.2-6.7); Basophils % 0.4 %; Eosinophils % 2.3 %; HCT 43.3 % (36.0-46.0); HGB 14.8 g/dL (11.2-15.7); Immature Grans % 0.2 %; Lymphocytes % 29.4 %; MCHC 34.2 % (32.0-36.0); MCV 82 fL (80-95); MPV 8.7 fL (8.0-11.0); Monocytes % 4.8 %; Neutrophils % 62.9 %; Platelet Count 340 10^3/uL (130-400); RBC 5.28 10^6/uL (3.93-5.22); RDW 13.1 % (11.7-14.6); RDW-SD 38.9 fL; WBC 8.17 10^3/uL (4.4-10.8)
== END 2024-01-07 01:57 | disposition home or self-care (01) ==
LOC: LBO 01:56
PROVIDERS: PCP Family Medicine; Visit Provider Obstetrics & Gynecology
DX: Z01.818 Encounter for other preprocedural examination (principal)
CPT/HCPCS: 36415; 86850; 86900; 86901; 85025

== ENCOUNTER 2024-01-08 06:23 | Day surgery (SDC) | payer BC, SELFPAY ==
[2024-01-08] VITALS (24 sets, daily range): BP systolic 90–130; BP diastolic 48–81; PULSE 55–81; RESP 14–24; TEMP 36–36.5; O2SAT 94–99; BMI 40.4
--- NOTE | 2024-01-08 07:16 | W.ANESPRE ---
General Info Date of Service Date Performed: 01/08/24 Height: 5 ft 3 in Weight: 103.4 kg Body Mass Index (BMI): 40.4 Surgical Procedure: Operation Date: 01/08/24 07:40 Proposed Procedure Side Surgeon p Salpingectomy Laparoscopic Bilateral Edel Means, Actual Procedure Side Surgeon p Salpingectomy Laparoscopic Bilateral Edel Miguelangel, Pre-Op Diagnosis Post-Op Diagnosis Desired sterilization Meds Allergies and Home Medications Allergies Allergy/AdvReac Type Severity Reaction Status Date / Time latex Allergy Intermediate red itchy Verified 01/08/24 06:34 rash adhesive tape AdvReac Intermediate Skin Rash Verified 01/08/24 06:34 Home Medication ?Medication ?Instructions ?Recorded acetaminophen 500 mg tablet 500 mg PO Q6H PRN 05/22/18 (Tylenol Extra Strength) bupropion HCl 150 mg tablet,12 hr 300 mg (2 x 150 mg) PO DAILY #60 02/26/23 sustained-release (Wellbutrin SR) tabs lamotrigine 100 mg tablet 100 mg PO DAILY 12/03/23 (Lamictal) Current Visit Medications: Current Medications Generic Name Dose Route Start Last Admin Trade Name Freq PRN Reason Stop Dose Admin Sodium Chloride 1,000 mls @ 0 mls/hr 01/08/24 06:00 Saline 1000ml Bag IV 02/06/24 23:59 INFUSION LETY IV Miscellaneous Supplies 1 each 01/08/24 06:00 Iv Access IV 02/06/24 23:59 DIRECTED LETY Sodium Chloride 0 ml 01/08/24 06:00 Normal Saline Flush 10 Ml Syr IV 02/06/24 23:59 PRN PRN Sodium Chloride 0 ml 01/08/24 06:00 Normal Saline 10 Ml Vial IJ 02/06/24 23:59 DIRECTED PRN Sterile Water 0 ml 01/08/24 06:00 Water,Injection,Sterile 10 Ml Vial IJ 02/06/24 23:59 DIRECTED PRN PFSH Active Problems Active Problems: Problem Status Onset Code Consultation for sterilization Acute Z30.09 Low libido Acute R68.82 Hemorrhoid Acute K64.9 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 BMI 40.0-44.9, adult Acute Z68.41 Migraine Chronic G43.909 Depression Chronic F32.9 Medical History Medical History (Updated 01/08/24 @ 06:51 by Shima Muhammad) Bipolar disorder Chronic vaginitis Medical History Comments:: Contacts in. Surgical History Surgical History S/P cholecystectomy August 2021, Shivani S/P foot surgery, left 2009 Tobacco Smoking/Tobacco Use Status: Never Alcohol Alcohol Intake: current Alcohol intake frequency: holidays/special occasions only Substance Use Substance use: Rarely Substance use type: marijuana Prental History History 4 Para 3 Hx # Term Pregnancies 3 Multiple births 0 Hx # Pregnancies 0 Ectopic pregnancies 0 AB induced 1 Hx Number of Living Children 3 AB spontaneous 0 Past Pregnancies Del. Date GA/Weeks # Preg Succ Route Wgt Sex Labor Lgth Anesthesia Location Prov Compl 11/19/18 39 No vaginal 3288.545 g Female 6 hours [facility] 12/20/20 39 No Yes vaginal 3628.739 g Female 2 hours [facility] 12/13/22 41 No Yes vaginal 3245 g Female 1hr 24min [facility] Delivery Date: 11/19/18 Last Updated by: Bozena Oliveros CNM [place], pos. GBS, used a nipple shield Delivery Date: 12/20/20 Last Updated by: Bozena Oliveros CNM [place], difficulty due to sore nipples Delivery Date: 12/13/22 Last Updated by: JANINE Hernandez Vital Signs and Lab Results Vital Signs Most Recent Vital Signs in EMR: Most Recent Vital Signs Temp Pulse Resp BP Pulse Ox 36.5 C 77 16 130/81 99 01/08/24 06:25 01/08/24 06:25 01/08/24 06:25 01/08/24 06:25 01/08/24 06:25 Lab Results Blood Type / Crossmatch: Antibody Screen NEGATIVE 01/07/24 Complete Blood Count: White Blood Count 8.17 10^3/uL (4.4-10.8) 01/07/24 08:55 Red Blood Count 5.28 10^6/uL (3.93-5.22) H 01/07/24 08:55 Hemoglobin 14.8 g/dL (11.2-15.7) 01/07/24 08:55 Hematocrit 43.3 % (36.0-46.0) 01/07/24 08:55 Platelet Count 340 10^3/uL (130-400) 01/07/24 08:55 Complete Metabolic Panel: No Data to Display Liver Function Panel: No Data to Display Coagulation Panel: No Data to Display Cardiac Panel: No Data to Display Arterial Blood Gas: No Data to Display Venous Blood Gas: No Data to Display Pancreas Panel: No Data to Display Thyroid Panel: No Data to Display Infectious Disease: No Data to Display Blood Cultures: No Data to Display Toxicology Panel: No Data to Display Panel: No Data to Display Anesthesia Assessment and Plan Anesthesia History Personal History: No History of Anesthesia Complications Family History: No Family History of Anesthesia Complications Exercise Tolerance Exercise Tolerance: Metabolic Equivalents>4 Pertinent Negatives Pertinent Negatives: No Symptoms of GERD, No Major Cardiovascular Symptoms or Complaints, No Major Pulmonary Symptoms or Complaints and No History of CVA/TIA Cardiac & Pulmonary Exam Cardiac Exam: Normal S1/S2 Heart Sounds Pulmonary Exam: Clear Bilateral Breath Sounds and Rhonchi Present Implantable Cardiac Device Does patient have a Pacemaker or an ICD?: No Airway Exam Known Difficult Airway: No Mallampati Class: 2 Mouth Opening: Normal (> 3cm) Thyromental Distance: Greater than 3 cm Neck Range of Motion: Full ROM Neck Circumference: Thick Teeth Condition: Normal Dentition and Other (tongue ring removed) ASA Classification ASA Score: ASA 3 Emergency Case?: No NPO Status NPO Status: NPO Clears >2 hours, Solids >8 hours Status Status: Negative HCG Anesthesia Plan Resuscitation Status: Full Code Anesthesia Technique: General Anesthesia Airway Planned: Endotracheal Tube Monitors Used: Standard Monitors
[2024-01-08] MEDS: Normal Saline 1,000 ML 125 ML IV (07:26)
--- NOTE | 2024-01-08 08:10 | FALL_PTH ---
PATIENT: Mary Bess LOC: [facility] U#:[id number] AGE/SX: 23/F ROOM: RE01/08/[address]: Edel Means DO : 2000 BED: DIS: 01/08/2024 SPEC #: [id number] RECD: 01/08/24 12:55 STATUS: GENEVA REQ #: [id number] MELVINA: 01/08/24 08:[address]: Edel Means DEPT: Surgical Specimen RECD BY: Yasmeen Warren ENTERED: 01/08/24 12:56 SP TYPE: Fall OTHR DR: Daniel Garcia Tissues: 1 - FALLOPIAN TUBE (STERILIZATION) 2 - FALLOPIAN TUBE (STERILIZATION) Procedures: GROSS AND MICRO LEVEL 2 Comments: [id number]
[2024-01-08] MEDS: Bupivacaine 0.25% Pres-Free 30 ML VIAL (08:20)
--- NOTE | 2024-01-08 08:40 | W.PM.OP ---
Date of service: 01/08/24 Time of Service: 08:40 Operative Note Operative Note DATE OF PROCEDURE: 01/08/24 PRE-OP DIAGNOSIS: Undesired fertility POST-OP DIAGNOSIS: same PROCEDURE: Laparoscopic bilateral salpingectomy SURGEON: Edel Means ASSISTING SURGEON: Charlotte Bryan ANESTHESIA TYPE: General LMA/ETT Refer to Anesthesia Record ESTIMATED BLOOD LOSS: 5 PATHOLOGY: other (1. Left fallopian tube 2. Right fallopian tube) COMPLICATIONS: None Patient was transported to: PACU Patient's condition: stable Indications: Undesired fertility Findings: Normal-appearing tubes, ovaries, uterus. No evidence of intra-abdominal adhesions or pathology. Procedure Description: After full informed consent was obtained, patient taken the operating suite with an IV running. She is placed in dorsal supine position and endotracheal intubation performed for the administration of general anesthesia with ease. She was then placed in the modified dorsolithotomy position in [facility]. She had pneumatic compression stockings for DVT prophylaxis she had a Hernandez catheter inserted for continuous bladder drainage. She was then prepped and draped in the usual sterile fashion. Exam under anesthesia revealed a uterus that was midline and mobile. Speculum was inserted into the vaginal vault and a [employer] uterine manipulator placed for uterine manipulation. At this point attention was turned to the abdomen where quarter percent Marcaine was used to infiltrate the umbilical area. A vertical skin incision was made and elevated with sharp towel clips. Attempt was made at placing a Veress needle for CO2 gas instillation. With the first and second attempts, pressures were not appropriate. At this point the fascia was identified at the umbilicus and elevated and a small incision was made. The Veress needle was inserted through the fascial incision and pneumoperitoneum created to a maximum pressure of 15 mmHg. At this point a bladeless 12 mm port was placed under direct visualization. Inspection of the abdomen and pelvis revealed no evidence of trauma and no intra-abdominal pathology noted. A second and third right and left lower quadrant trocar site were placed under direct visualization after infiltration of quarter percent Marcaine. 5 mm ports were inserted. At this point the uterus was elevated and mobile left fallopian tube identified and cautery transected. Left fallopian tube was removed from the abdomen. Pedicle was noted to be hemostatic. Attention was then turned to the right fallopian tube which was elevated and cautery transected. The right fallopian tube was removed from the abdomen. There was 1 area that was nonhemostatic which was cauterized to achieve hemostasis. Pneumoperitoneum was released to a pressure of 5 mm and pedicles again inspected and noted to be hemostatic. At this point, under direct visualization ports were removed after pneumoperitoneum released. Patient was returned to the dorsal supine position and the infraumbilical fascial incision was closed using 0 Vicryl suture. Skin edges were reapproximated with 4-0 undyed Monocryl and Exofin skin glue placed. Hernandez catheter was removed as was the [place] and the patient was returned to the dorsal supine position and awoke from anesthesia without difficulty. She was taken to the postanesthesia care unit in stable condition. Complications: None apparent Findings: Normal-appearing fallopian tubes, uterus, ovaries. No evidence of intra-abdominal or pelvic pathology or scarring. Fluids: Crystalloid per anesthesia EBL: 5 mL Pathology: 1. Left fallopian tube 2. Right fallopian tube.
[2024-01-08] MEDS: fentaNYL 100 MCG/2 ML VIAL IVP (09:06)
--- NOTE | 2024-01-08 10:34 | W.ANESPOSTOP ---
Postoperative Evaluation Date, Time and Location Date Performed: 01/08/24 Time Performed: 10:25 Patient Location: Day Surgery Unit Vital Signs Most Recent Imported Vital Signs: Most Recent Vital Signs Temp Pulse Resp BP Pulse Ox 36.5 C 75 15 105/64 98 01/08/24 10:16 01/08/24 10:16 01/08/24 10:16 01/08/24 10:16 01/08/24 10:16 Pain Score Most Recent Pain Score: Most Recent Pain Score Pain Level 3 01/08/24 10:16 Assessment Mental Status: Awake (Alert & Oriented to Patient Baseline) Airway and Respiratory Function: Patent airway with normal (patient baseline) respiratory exam Cardiovascular Function: Hemodynamically Stable Hydration Status: Adequately Hydrated Nausea & Vomiting: No Nausea or Vomiting Pain: Pain is tolerable per patient Peripheral Nerve Block: Patient did not receive a nerve block
== END 2024-01-08 11:35 | disposition home or self-care (01) ==
PROVIDERS: PCP Family Medicine; Visit Provider Obstetrics & Gynecology
PROC: (CPT 58661; principal; 2024-01-08 07:30)
DX: Z30.2 Encounter for sterilization (principal)
CPT/HCPCS: 58661; 81025; 88302; J0665; J1100; J1885; J2001; J2250; J2405; J2704; J3010

== ENCOUNTER 2024-04-13 16:08 | Outpatient (REF) | payer BC, SELFPAY ==
[2024-04-13 15:44] LABS: Abs Immature Grans 0.05 10^3/uL (0.0-0.06); Absolute Basophil Count 0.04 10^3/uL (0.0-0.2); Absolute Eosinophil Count 0.17 10^3/uL (0.0-0.7); Absolute Lymphocyte Count 2.41 10^3/uL (1.2-3.4); Absolute Monocyte Count 0.54 10^3/uL (0.1-0.8); Basophils % 0.4 %; Eosinophils % 1.9 %; HGB 14.8 g/dL (11.2-15.7); Immature Grans % 0.6 %; Lymphocytes % 26.7 %; MCH 28.4 pg (27.0-33.0); MCHC 33.6 % (32.0-36.0); MCV 85 fL (80-95); Neutrophils % 64.4 %; RBC 5.21 10^6/uL (3.93-5.22); RDW-SD 39.6 fL; WBC 9.01 10^3/uL (4.4-10.8)
[2024-04-13 16:36] LABS: Diff Comment PLT Morph Reviewed; RBC Morphology Normal
[2024-04-13 18:10] LABS: Uric Acid 4.4 mg/dL (2.6-6.0)
[2024-04-14 09:15] LABS: Lyme Ab w Rflx to Lyme Confirm Negative (Negative)
== END 2024-04-13 16:09 | disposition home or self-care (01) ==
LOC: LBN 16:08
PROVIDERS: PCP Family Medicine; Visit Provider Nurse Practitioner Family
DX: M25.461 Effusion, right knee (principal)
CPT/HCPCS: 84550; 85025; 86140; 86618

== ENCOUNTER 2024-05-21 15:43 | Outpatient (CLI) | payer OTHER, SELFPAY ==
--- NOTE | 2024-05-21 13:00 | DI.RAD_ITS ---
Exam(s) XR KNEE RT 4V AP,LAT,NICO,PAT EXAM: XR KNEE RT 4V AP,LAT,NICO,PAT CLINICAL HISTORY: R knee pain. TECHNIQUE: 2D digital imaging was performed. Three views. COMPARISON: No exams were available for comparison FINDINGS: BONES: No acute fracture is present. No bony destructive lesion is seen. JOINTS: The knee is normally aligned. No joint effusion is seen. SOFT TISSUE: Normal. IMPRESSION: Unremarkable radiographs of the right knee. DATA REPOSITORY: RADIATION DOSE DELIVERED:
== END 2024-05-21 15:44 | disposition home or self-care (01) ==
LOC: DIORS 15:43
PROVIDERS: PCP Family Medicine; Visit Provider Physician Assistant
DX: M25.561 Pain in right knee (principal)
CPT/HCPCS: 73564

== ENCOUNTER 2024-05-29 00:36 | Outpatient (CLI) | payer OTHER, SELFPAY ==
--- NOTE | 2024-05-29 08:30 | DI.MRI_ITS ---
Exam(s) MR LOWER JOINT RT WO EXAM: MR LOWER JOINT RT WO CLINICAL HISTORY: R KNEE PAIN,internal derangement, m23.91 TECHNIQUE: Multiplanar multisequence MRI of the knee was performed. COMPARISON: CR XR KNEE RT 4V AP,LAT,NICO,PAT from 05/21/2024 FINDINGS: EFFUSION: There is a moderate-large right knee joint effusion. There is no Queen cyst in the poplite al fossa. MARROW:There is no evidence of fracture, bone contusion, nor osteochondral defects.. There are no si gnificant osseous lesions. PATELLOFEMORAL COMPARTMENT: The quadriceps tendon is intact. The patellar ligament is intact. There is no significant thinning of the retropatellar cartilage. No evidence of fissure nor signific ant chondral defect. No osteochondral defect at this level.There is no intraosseous signal to sugges t recent patellar dislocation. There are no patellar retinacular tears. CRUCIATE LIGAMENTS: The anterior cruciate ligament is intact.The posterior cruciate ligament is intac t. MEDIAL COMPARTMENT/MEDIAL MENISCUS: There are no tears of the medial meniscus evident.. There are no chondral defects, osteochondral defects, subarticular marrow edema, nor osteophytes evid ent. MEDIAL COLLATERAL LIGAMENT: Intact LATERAL COMPARTMENT/LATERAL MENISCUS: There is a tear of the posterior horn and body of the lateral m eniscus. Appears somewhat complex with rotated meniscal fragment. The anterior horn of the lateral meniscus appears intact. There are no chondral defects, osteochondral defects, subarticular marrow e shaw, nor osteophytes evident. ILIOTIBIAL BAND: Intact LATERAL COLLATERAL LIGAMENT COMPLEX: The fibular collateral ligament is intact. The biceps femoris t endon is intact.Popliteus muscle and tendon are intact. IMPRESSION: 1. There is a somewhat complex tear of the posterior horn and body of the lateral meniscus, as descri bed above. There is minimal if any significant articular cartilage thinning in the lateral compartme nt and no osteochondral defects nor subarticular bone edema in this compartment nor elsewhere in the knee. There are no significant findings in the medial compartment nor in the patellofemoral compartm ent. 2. Cruciate and collateral ligaments are intact. 3. There is a moderate-large joint effusion noted. There is no Queen cyst in the popliteal fossa. DATA REPOSITORY:
== END 2024-05-29 00:56 ==
PROVIDERS: PCP Family Medicine; Visit Provider Student in an Organized Health Care Education/Training Program
DX: M23.231 Derangement of other medial meniscus due to old tear or injury, right knee (principal)
CPT/HCPCS: 73721

== ENCOUNTER 2024-06-18 10:48 | Day surgery (SDC) | payer OTHER, SELFPAY ==
[2024-06-18] VITALS (25 sets, daily range): BP systolic 93–128; BP diastolic 54–84; PULSE 63–96; RESP 11–23; TEMP 36.4–36.7; O2SAT 91–100; BMI 39.7
--- NOTE | 2024-06-18 07:12 | W.PM.DSUDISC ---
Date of service: 06/18/24 Discharge Plan Disposition Patient Disposition: Home Condition: Stable Discharge Details Attending Provider: Ottoniel Lima Primary Care Provider: Mau Klein Home Meds and New Rx's Prescriptions: New naproxen 250 mg tablet 250 - 500 mg PO BID PRN (Reason: Moderate pain) Qty: 40 0RF oxycodone 5 mg tablet 5 - 10 mg PO Q4H PRN (Reason: Moderate to severe pain) Qty: 18 0RF aspirin 325 mg tablet,delayed release (DR/EC) 325 mg PO DAILY Qty: 14 0RF Continued lamotrigine [Lamictal] 100 mg tablet 100 mg PO DAILY acetaminophen [Tylenol Extra Strength] 500 mg tablet 500 mg PO Q6H PRN Discharge Instructions Additional Instructions: Surgery: Right knee arthroscopy with partial lateral meniscectomy of discoid lateral meniscus tear and plica excision Activity: Weightbearing as tolerated. Advance range of motion as comfort allows. No knee brace or crutches needed as soon as comfortable. Recommend avoiding sports, pivoting, and squatting for 6-8 weeks. A physical therapy prescription will be sent electronically to start in 2 to 3 weeks. Work restrictions: May return to work when comfortable and ready, typically about 2-3 weeks. Avoid kneeling, squatting, and allow seated breaks for about 6-8 weeks. Prescriptions: Aspirin 325 mg take 1 daily to prevent a blood clot for 14 days Naproxen 250 mg take 1-2 every 12 hours with a meal as needed for moderate pain Oxycodone 5 mg take 1-2 every 4-6 hours as needed for severe pain You may use [id number] Tylenol (acetaminophen) as needed for mild pain. These pain medications may be taken all at once or in different combinations as needed. Also, recommend Colace (docusate) as a stool softener as surgery and pain medicine cause constipation. You may try [id number] diphenhydramine (Benadryl) 25-50 mg nightly as a sleep aid Dressings: Leave dressing in place for 3 days. May then remove and leave open to air or cover incisions with Band-Aids. Leave the sticky Steri-Strips in place until they fall off or remove them after you shower. May shower after 5 days. Follow-up: 10-[address] Lima You may take off the leg compression stockings this evening at home. You may also leave them on a few days longer if you have a history of leg swelling or edema. Let us know right away if you develop any redness, drainage, fevers, chest pain, or trouble breathing. Do not drink alcohol or drive for at least 24 hours after anesthesia. Please call the office during business hours with any questions or concerns. Discharge Orders Discharge Orders: Discharge Order (Routine); Ordered 06/18/24 Ordered By: Eliazar Chatman DS: Diagnosis Discharge Diagnosis (1) Tear of lateral meniscus of right knee: Status: Acute (2) Discoid lateral meniscus of right knee: Status: Acute
--- NOTE | 2024-06-18 07:22 | ROE_ITS ---
Operative Note Operative Note PRE-OP DIAGNOSIS: Right knee 1. Complex lateral meniscus tear POST-OP DIAGNOSIS: same PROCEDURE: Right knee 1. Partial lateral meniscectomy, CPT #28762 2. Synovectomy, CPT #94610: Medial plica excision, anterior, intercondylar and suprapatellar synovectomy SURGEON: Ottoniel Lima LIGHT FIXTURE SERVICER: None None ANESTHESIA TYPE: Local By Surgeon and General LMA/ETT Refer to Anesthesia Record ESTIMATED BLOOD LOSS: 5 PATHOLOGY: none sent TOURNIQUET TIME: 0 Patient was transported to: PACU Patient's condition: stable Indications: Please see complete medical record for details. Findings: Exam under anesthesia: Full range of motion, no instability Arthroscopic findings: Suprapatellar adhesions, montoya medial plica, small area mild medial femoral condyle chondromalacia, intact medial meniscus, intact ACL, abundant fat pad synovitis anteriorly and intercondylar. Mild lateral chondromalacia. Large complex meniscus tear involving what appeared to be a total discoid lateral meniscus torn and flipped parrot-beak fashion posterior inferiorly. Procedure Description: In the operating room, general anesthesia was induced. The patient was positioned supine on the operating room table. All bony prominences were well- padded. Preoperative antibiotics were administered. The knee was prepped and draped in the usual sterile fashion. The correct patient, procedure, and side of the procedure were all verified prior to incision. Exam under anesthesia was performed. 20 cc of 0.25% bupivacaine containing epinephrine was infiltrated about the planned anteromedial and anterolateral knee arthroscopy portals. The portals were established and a complete diagnostic arthroscopy was performed with relevant findings detailed above. There was an obvious thickened medial gutter plica, which was resected with the radiofrequency wand and mechanical shaver. There was a large broad suprapatellar synovial band and adhesion which was similarly removed with the radiofrequency wand mechanical shaver. The anterior intercondylar area had abundant fat pad synovitis which was debrided. The lateral meniscus was carefully inspected. It could be reduced from its displaced position and encompassed the entire lateral compartment consistent with a total discoid meniscus which had torn in a somewhat parrot-beak fashion from the posterior horn body junction. It was then resected in piecemeal using meniscal biters and the power shaver and lastly contoured to a more appropriate margin and a final trimmed with the torpedo shaver. The meniscal remnant was probed and found to have a stable margin, stable root, and no other tears Under direct arthroscopic visualization an 18-gauge needle was passed into the knee from superolateral into the suprapatellar pouch. The knee was copiously irrigated with arthroscopic fluid until there was a clear effluent before being drained of all fluid. The anteromedial and anterolateral portals were closed in 3-0 Monocryl in a buried interrupted fashion. An additional 10 cc of 0.25% bupivacaine with epinephrine was infiltrated about the lateral compartment. Mastisol, Steri-Strips, and 4 x 4 gauze were applied over the incisions. The knee was then wrapped gently with an BLANCA comressive bandage. The patient awoke from anesthesia without complication and was transferred to the recovery room in a stable condition. Date of Procedure: 06/18/24
--- NOTE | 2024-06-18 09:17 | W.ANESPRE ---
General Info Date of Service Date Performed: 06/18/24 Height: 5 ft 4 in Weight: 104.326 kg Body Mass Index (BMI): 39.4 Surgical Procedure: Operation Date: 06/18/24 12:25 Proposed Procedure Side Surgeon p Knee Arthroscopy w Lateral Meniscus Repair vs Synovectomy Right Ottoniel Lima MD Meds Allergies and Home Medications Allergies Allergy/AdvReac Type Severity Reaction Status Date / Time latex Allergy Intermediate red itchy Verified 06/17/24 11:42 rash adhesive tape AdvReac Intermediate Skin Rash Verified 06/17/24 11:42 Home Medication ?Medication ?Instructions ?Recorded acetaminophen 500 mg tablet 500 mg PO Q6H PRN 05/22/18 (Tylenol Extra Strength) lamotrigine 100 mg tablet 100 mg PO DAILY 12/03/23 (Lamictal) Current Visit Medications: Current Medications Generic Name Dose Route Start Last Admin Trade Name Freq PRN Reason Stop Dose Admin Ringer's Solution 1,000 mls @ 30 mls/hr 06/18/24 06:00 IV 06/18/24 23:59 INFUSION LETY Cefazolin Sodium 3,000 mg/ 100 mls @ 200 mls/hr 06/18/24 06:00 Sodium Chloride IV 06/18/24 23:59 PREOP LETY Tranexamic Acid/Sodium Chloride 1,000 mg in 100 mls @ 600 mls/hr 06/18/24 06:00 IVPB 06/18/24 23:59 PREOP LETY IV Miscellaneous Supplies 1 each 06/18/24 06:00 Iv Access IV 06/18/24 23:59 DIRECTED LETY Oxycodone HCl 0 mg 06/18/24 07:11 Oxycodone 5 Mg Tab PO 07/18/24 07:10 Q3H PRN PRN Pain Sodium Chloride 0 ml 06/18/24 06:00 Normal Saline Flush 10 Ml Syr IV 06/18/24 23:59 PRN PRN Sodium Chloride 0 ml 06/18/24 06:00 Normal Saline 10 Ml Vial IJ 06/18/24 23:59 DIRECTED PRN Sterile Water 0 ml 06/18/24 06:00 Water,Injection,Sterile 10 Ml Vial IJ 06/18/24 23:59 DIRECTED PRN PFSH Active Problems Active Problems: Problem Status Onset Code Tear of lateral meniscus of right knee Acute S83.281A Internal derangement of right knee Acute M23.91 Consultation for sterilization Acute Z30.09 Low libido Acute R68.82 Hemorrhoid Acute K64.9 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 BMI 40.0-44.9, adult Acute Z68.41 Migraine Chronic G43.909 Depression Chronic F32.9 Medical History Medical History Bipolar disorder Chronic vaginitis Surgical History Surgical History Status post tubal ligation Bilateral laparoscopic salpingectomy performed 01/2024 S/P cholecystectomy August 2021, Shivani S/P foot surgery, left 2009 Tobacco Smoking/Tobacco Use Status: Never Alcohol Alcohol Intake: current Alcohol intake frequency: holidays/special occasions only Substance Use Substance use: Rarely Substance use type: marijuana Prental History History 4 Para 3 Hx # Term Pregnancies 3 Multiple births 0 Hx # Pregnancies 0 Ectopic pregnancies 0 AB induced 1 Hx Number of Living Children 3 AB spontaneous 0 Past Pregnancies Del. Date GA/Weeks # Preg Succ Route Wgt Sex Labor Lgth Anesthesia Location Prov Complic 11/19/18 39 No vaginal 3288.545 g Female 6 hours [facility] 12/20/20 39 No Yes vaginal 3628.739 g Female 2 hours [facility] 12/13/22 41 No Yes vaginal 3245 g Female 1hr 24min [facility] Delivery Date: 11/19/18 Last Updated by: Bozena Oliveros CNM [place], pos. GBS, used a nipple shield Delivery Date: 12/20/20 Last Updated by: Bozena Oliveros CNM [place], difficulty due to sore nipples Delivery Date: 12/13/22 Last Updated by: JANINE Hernandez Vital Signs and Lab Results Lab Results Blood Type / Crossmatch: No Data to Display Complete Blood Count: No Data to Display Complete Metabolic Panel: No Data to Display Liver Function Panel: No Data to Display Coagulation Panel: No Data to Display Cardiac Panel: No Data to Display Arterial Blood Gas: No Data to Display Venous Blood Gas: No Data to Display Pancreas Panel: No Data to Display Thyroid Panel: No Data to Display Infectious Disease: No Data to Display Blood Cultures: No Data to Display Toxicology Panel: No Data to Display Panel: No Data to Display Anesthesia Assessment and Plan Anesthesia History Personal History: No History of Anesthesia Complications Family History: No Family History of Anesthesia Complications Exercise Tolerance Exercise Tolerance: Metabolic Equivalents>4 Pertinent Negatives Pertinent Negatives: No Symptoms of GERD, No Major Cardiovascular Symptoms or Complaints, No Major Pulmonary Symptoms or Complaints and No History of CVA/TIA Cardiac & Pulmonary Exam Cardiac Exam: Normal S1/S2 Heart Sounds Pulmonary Exam: Clear Bilateral Breath Sounds and Rhonchi Present Implantable Cardiac Device Does patient have a Pacemaker or an ICD?: No Airway Exam Known Difficult Airway: No Mallampati Class: 2 Mouth Opening: Normal (> 3cm) Thyromental Distance: Greater than 3 cm Neck Range of Motion: Full ROM Neck Circumference: Thick Teeth Condition: Normal Dentition and Other (tongue ring removed) ASA Classification ASA Score: ASA 3 Emergency Case?: No NPO Status NPO Status: NPO Clears >2 hours, Solids >8 hours Status Status: Negative HCG Anesthesia Plan Resuscitation Status: Full Code Anesthesia Technique: General Anesthesia Airway Planned: Endotracheal Tube Monitors Used: Standard Monitors
[2024-06-18] MEDS: Lactated Ringers 1,000 ML 30 ML IV (11:46)
--- NOTE | 2024-06-18 12:02 | W.ANESPRE ---
General Info Date of Service Date Performed: 06/18/24 Height: 5 ft 4 in Weight: 105.1 kg Body Mass Index (BMI): 39.7 Surgical Procedure: Operation Date: 06/18/24 12:25 Proposed Procedure Side Surgeon p Knee Arthroscopy w Lateral Meniscus Repair vs Synovectomy Right Ottoniel Lima MD Actual Procedure Side Surgeon p Knee Arthroscopy w Lateral Meniscus Repair vs Synovectomy Right Ottoniel Lima MD Pre-Op Diagnosis Post-Op Diagnosis Tear of lateral meniscus of right knee Meds Allergies and Home Medications Allergies Allergy/AdvReac Type Severity Reaction Status Date / Time latex Allergy Intermediate red itchy Verified 06/18/24 11:18 rash adhesive tape AdvReac Intermediate Skin Rash Verified 06/18/24 11:18 Home Medication ?Medication ?Instructions ?Recorded acetaminophen 500 mg tablet 500 mg PO Q6H PRN 05/22/18 (Tylenol Extra Strength) lamotrigine 100 mg tablet 100 mg PO DAILY 12/03/23 (Lamictal) Current Visit Medications: Current Medications Generic Name Dose Route Start Last Admin Trade Name Freq PRN Reason Stop Dose Admin Ringer's Solution 1,000 mls @ 30 mls/hr 06/18/24 06:00 06/18/24 11:46 IV 06/18/24 23:59 30 mls/hr INFUSION LETY Administration Cefazolin Sodium 3,000 mg/ 100 mls @ 200 mls/hr 06/18/24 06:00 Sodium Chloride IV 06/18/24 23:59 PREOP LETY Tranexamic Acid/Sodium Chloride 1,000 mg in 100 mls @ 600 mls/hr 06/18/24 06:00 IVPB 06/18/24 23:59 PREOP LETY IV Miscellaneous Supplies 1 each 06/18/24 06:00 Iv Access IV 06/18/24 23:59 DIRECTED LETY Oxycodone HCl 0 mg 06/18/24 07:11 Oxycodone 5 Mg Tab PO 07/18/24 07:10 Q3H PRN PRN Pain Sodium Chloride 0 ml 06/18/24 06:00 Normal Saline Flush 10 Ml Syr IV 06/18/24 23:59 PRN PRN Sodium Chloride 0 ml 06/18/24 06:00 Normal Saline 10 Ml Vial IJ 06/18/24 23:59 DIRECTED PRN Sterile Water 0 ml 06/18/24 06:00 Water,Injection,Sterile 10 Ml Vial IJ 06/18/24 23:59 DIRECTED PRN PFSH Active Problems Active Problems: Problem Status Onset Code Tear of lateral meniscus of right knee Acute S83.281A Internal derangement of right knee Acute M23.91 Consultation for sterilization Acute Z30.09 Low libido Acute R68.82 Hemorrhoid Acute K64.9 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 BMI 40.0-44.9, adult Acute Z68.41 Migraine Chronic G43.909 Depression Chronic F32.9 Medical History Medical History Bipolar disorder Chronic vaginitis Surgical History Surgical History Status post tubal ligation Bilateral laparoscopic salpingectomy performed 01/2024 S/P cholecystectomy August 2021, Shivani S/P foot surgery, left 2009 Tobacco Smoking/Tobacco Use Status: Never Alcohol Alcohol Intake: current Alcohol intake frequency: holidays/special occasions only Substance Use Substance use: Rarely Substance use type: marijuana Prental History History 4 Para 3 Hx # Term Pregnancies 3 Multiple births 0 Hx # Pregnancies 0 Ectopic pregnancies 0 AB induced 1 Hx Number of Living Children 3 AB spontaneous 0 Past Pregnancies Del. Date GA/Weeks # Preg Succ Route Wgt Sex Labor Lgth Anesthesia Location [facility] 11/19/18 39 No vaginal 3288.545 g Female 6 hours [facility] 12/20/20 38 No Yes vaginal 3628.739 g Female 2 hours [facility] 12/13/22 40 No Yes vaginal 3245 g Female 1hr 24min [facility] [place] Delivery Date: 11/19/18 Last Updated by: Bozena Oliveros CNM [place], pos. GBS, used a nipple shield Delivery Date: 12/20/20 Last Updated by: Bozena Oliveros CNM [place], difficulty due to sore nipples Delivery Date: 12/13/22 Last Updated by: JANINE Hernandez Vital Signs and Lab Results Vital Signs Most Recent Vital Signs in EMR: Most Recent Vital Signs Temp Pulse Resp BP Pulse Ox 36.7 C 96 H 16 128/84 98 06/18/24 11:05 06/18/24 11:05 06/18/24 11:05 06/18/24 11:05 06/18/24 11:05 Lab Results Blood Type / Crossmatch: No Data to Display Complete Blood Count: No Data to Display Complete Metabolic Panel: No Data to Display Liver Function Panel: No Data to Display Coagulation Panel: No Data to Display Cardiac Panel: No Data to Display Arterial Blood Gas: No Data to Display Venous Blood Gas: No Data to Display Pancreas Panel: No Data to Display Thyroid Panel: No Data to Display Infectious Disease: No Data to Display Blood Cultures: No Data to Display Toxicology Panel: No Data to Display Panel: No Data to Display Anesthesia Assessment and Plan Anesthesia History Personal History: No History of Anesthesia Complications Family History: No Family History of Anesthesia Complications Exercise Tolerance Exercise Tolerance: Metabolic Equivalents>4 Pertinent Negatives Pertinent Negatives: No Symptoms of GERD, No Major Cardiovascular Symptoms or Complaints and No Major Pulmonary Symptoms or Complaints Cardiac & Pulmonary Exam Cardiac Exam: Normal S1/S2 Heart Sounds Pulmonary Exam: Clear Bilateral Breath Sounds Implantable Cardiac Device Does patient have a Pacemaker or an ICD?: No Airway Exam Known Difficult Airway: No Mallampati Class: 2 Mouth Opening: Normal (> 3cm) Thyromental Distance: Greater than 3 cm Neck Range of Motion: Full ROM Neck Circumference: Thick Teeth Condition: Normal Dentition and Other (tongue ring removed) ASA Classification ASA Score: ASA 3 Emergency Case?: No NPO Status NPO Status: NPO Clears >2 hours, Solids >8 hours Status Status: Negative HCG Anesthesia Plan Resuscitation Status: Full Code Anesthesia Technique: General Anesthesia Airway Planned: Endotracheal Tube Monitors Used: Standard Monitors and SedLine
[2024-06-18] MEDS: ceFAZolin 3,000 MG in Normal Saline 100 ML 200 MG IV (12:50)
[2024-06-18] MEDS: TRANEXAMIC ACID/SOD. CHL. 1,000 MG/100 ML BAG 600 MG IVPB (13:10)
[2024-06-18] MEDS: EPINEPHrine 10 MG/10 ML ML (14:09)
[2024-06-18] MEDS: Bupivacaine 0.25% Pres-Free W/EPI 30 ML VIAL (14:09)
[2024-06-18] MEDS: HYDROmorphone 1 MG/ML SYR IVP ×2 (14:55→15:05)
[2024-06-18] MEDS: fentaNYL 100 MCG/2 ML VIAL IVP (15:09)
--- NOTE | 2024-06-18 15:29 | W.ANESPOSTOP ---
Postoperative Evaluation Date, Time and Location Date Performed: 06/18/24 Time Performed: 15:29 Patient Location: PACU Vital Signs Most Recent Imported Vital Signs: Most Recent Vital Signs Temp Pulse Resp BP Pulse Ox 36.5 C 63 16 118/78 99 06/18/24 15:24 06/18/24 15:26 06/18/24 15:26 06/18/24 15:25 06/18/24 15:26 Pain Score Most Recent Pain Score: Most Recent Pain Score Pain Level 4 06/18/24 15:24 Assessment Mental Status: Awake (Alert & Oriented to Patient Baseline) Airway and Respiratory Function: Patent airway with normal (patient baseline) respiratory exam (Sating well on room air, no cough) Cardiovascular Function: Hemodynamically Stable Hydration Status: Adequately Hydrated Nausea & Vomiting: No Nausea or Vomiting Pain: Pain is tolerable per patient Peripheral Nerve Block: Patient did not receive a nerve block
[2024-06-18] MEDS: oxyCODONE 5 MG TAB PO (15:57)
== END 2024-06-18 16:58 | disposition home or self-care (01) ==
LOC: SUR 10:49
PROVIDERS: PCP Family Medicine; Visit Provider Student in an Organized Health Care Education/Training Program
PROC: (CPT 29876; principal; 2024-06-18 12:15)
DX: S83.281A Other tear of lateral meniscus, current injury, right knee, initial encounter (principal); Q68.6 Discoid meniscus; X58.XXXA Exposure to other specified factors, initial encounter
CPT/HCPCS: 29876; 29881; 81025; J0131; J0690; J1100; J1171; J1885; J2003; J2250; J2270; J2405; J2704; J3010

== ENCOUNTER 2024-09-16 10:21 | Outpatient (REF) | payer OTHER, SELFPAY | END 2024-09-16 10:22 | disposition home or self-care (01) | LOC: LBN 10:21 | PROVIDERS: PCP Family Medicine; Visit Provider Nurse Practitioner Women's Health | DX: N76.0 Acute vaginitis (principal) | CPT/HCPCS: 87480; 87510; 87660 ==

== ENCOUNTER 2025-01-12 13:54 | Outpatient (REF) | payer OTHER, SELFPAY | END 2025-01-12 13:55 | disposition home or self-care (01) | LOC: LBN 13:54 | PROVIDERS: PCP Family Medicine; Visit Provider Nurse Practitioner Women's Health | DX: N76.0 Acute vaginitis (principal) | CPT/HCPCS: 87480; 87510; 87660 ==

== ENCOUNTER 2025-03-31 15:41 | Outpatient (REF) | payer OTHER, SELFPAY ==
[2025-03-31 20:50] LABS: HCT 39.6 % (36.0-46.0); HGB 13.2 g/dL (11.2-15.7); MCH 27.8 pg (27.0-33.0); MCHC 33.3 % (32.0-36.0); MCV 83 fL (80-95); MPV 9.0 fL (8.0-11.0); Platelet Count 357 10^3/uL (130-400); RBC 4.75 10^6/uL (3.93-5.22); RDW 13.2 % (11.7-14.6); RDW-SD 40.0 fL; WBC 8.60 10^3/uL (4.4-10.8)
[2025-03-31 21:14] LABS: Hemoglobin A1C 5.0 % (<5.7)
[2025-03-31 21:21] LABS: TSH 2.98 uIU/mL (0.55-4.78)
[2025-03-31 21:23] LABS: ALT 22 U/L (10-49); AST 24 U/L (<34); Albumin 4.5 g/dL (3.4-5.0); Alkaline Phosphatase 100 U/L (46-116); Anion Gap 6.4 mmol/L (3-11); BUN 15 mg/dL (9-23); Bilirubin, Total 0.40 mg/dL (0.2-1.2); CO2 27.6 mmol/L (20.0-31.0); Calcium 9.2 mg/dL (8.3-10.6); Chloride 106 mmol/L (98-107); Cholesterol 185 mg/dL (<200); Glucose 76 mg/dL (74-106); HDL Cholesterol 38 mg/dL (>40); Potassium 4.2 mmol/L (3.5-5.1); Sodium 140 mmol/L (136-145); Total Protein 7.4 g/dL (5.7-8.2)
== END 2025-03-31 15:42 | disposition home or self-care (01) ==
LOC: NCHCN 15:41
PROVIDERS: PCP Family Medicine; Visit Provider Nurse Practitioner Family
DX: Z00.00 Encounter for general adult medical examination without abnormal findings (principal); Z79.899 Other long term (current) drug therapy
CPT/HCPCS: 80053; 80061; 85027; 83036; 84443